=== PATIENT | male | born 1940 | race Caucasian/White ===

== ENCOUNTER → 2017-06-11 | Day surgery (SDC) | payer MEDICARE ==
[~2017-06-11] MED LIST: ASPIRIN81 MG; AUGMENTIN 875-1 EACH PO; CEFTRIAXONE SOD 1 GM VIAL ONE; CIPRO500 MG PO; DEXAMETHASONE SOD PHOS INJ 4 MG/ML VIAL ONE; EPHEDRINE SULFATE INJ 50 MG/10 ML SYR ONE; FENTANYL CITRATE/PF 100MCG/2 ML INJ ONE; IOPAMIDOL 610MG/1ML 300 MG/ML VIAL IV ONE; LIDOCAINE HCL 2% LOCAL INJ 5 ML SDV VIAL INJ ONE; METHYLPREDNISOL40 MG PO; MIDAZOLAM HCL 2 MG/2 ML VIAL ONE; ONDANSETRON HCL INJ 2 MG/ML VIAL ONE; ONDANSETRON ODT8 MG; PROPOFOL IV EMULSION 10 MG/ML 20 ML VIAL ONE; SEVOFLURANE INHAL SOLN 250 ML PEN BTL ONE; TAMSULOSIN HCL 0.4 MG CAP PO NR; TAMSULOSIN HCL0.4 MG; TYLENOL WITH C1 EACH PO
[2017-06-11 08:55] LABS: BASOPHILS # (AUTO) 0.1 (0.0-0.1); BASOPHILS % 0.6 % (0.0-1.0); EOSINOPHILS # (AUTO) 0.5 (0.0-0.4); EOSINOPHILS % 5.8 % (0.0-6.0); LYMPHOCYTES # (AUTO) 1.8 (1.0-3.2); LYMPHOCYTES % 21.8 % (18.0-39.1); MEAN CORPUSCULAR HEMOGLOBIN 30.2 pg (28-32); MEAN CORPUSCULAR HGB CONC 33.3 g/dL (31-35); MEAN CORPUSCULAR VOLUME 90.7 fL (81-99); MONOCYTES # (AUTO) 0.7 (0.2-0.8); MONOCYTES % 9.2 % (4.4-11.3); NEUTROPHILS % 62.4 % (38.7-80.0); PLATELET COUNT 342 x10e3/uL (140-360); RED BLOOD COUNT 3.97 x10e6/uL (4.3-5.7); RED CELL DISTRIBUTION WIDTH 14.3 % (11.7-14.4)
--- NOTE | 2017-06-11 09:30 | Diagnostic Imaging Report ---
PROCEDURE: Frontal and lateral views of the chest. COMPARISON: None. INDICATIONS: PREOPERATIVE CHEST XRAY FOR KIDNEY STONE SURGERY FINDINGS: Lines/tubes: None. Lungs: The lungs are well inflated and clear. There is no evidence of pneumonia or pulmonary edema. Biapical scarring. Pleura: There is no pleural effusion or pneumothorax. Heart and mediastinum: The heart and the mediastinum are normal. Atherosclerotic calcifications. Bones: No acute bony abnormality. Degenerative changes of the thoracic spine. IMPRESSION: No acute radiographic abnormality. Dictated by: Ignacio Perales M.D. on 06/11/2017 at 9:30 Electronically approved by: Ignacio Perales M.D. on 06/11/2017 at 9:30
--- NOTE | 2017-06-11 11:08 | Operative Report ---
DATE OF PROCEDURE: June 11, 2017 PREOPERATIVE DIAGNOSIS: Right distal ureteral stone. POSTOPERATIVE DIAGNOSES 1. Right distal ureteral stone. 2. Multiple bladder stones. OPERATIVE PROCEDURES PERFORMED 1. Cystoscopy. 2. Right retrograde pyelogram. 3. Right ureteroscopy with stone extraction. 4. Placement of right ureteral stent. ANESTHESIA: General anesthesia. ESTIMATED BLOOD LOSS: Minimal. INDICATIONS: Mr. Shiv Buck is a 77-year-old gentleman who recently presented with right flank pain. Was found to have a 6 mm right distal ureteral stone with moderate hydro. He now presents for definitive surgical management after failure of a trial of passage. PROCEDURE IN DETAIL: The patient was brought into the operating room and placed in the supine position. After administration of general anesthesia, was placed in the dorsal lithotomy position, and prepped and draped in the usual sterile fashion. Cystourethroscopy was performed using a 21-Gu[place] cystoscope. The anterior and posterior urethra were noted to be normal. The prostate revealed trilobar hyperplasia with moderate elevation of the median bar. The bladder was entered with mild difficulty. Upon entrance in the bladder, the ureteral orifices were in their normal anatomical position. There was grade 2-3 trabeculations noted with cellule formation and a few seen. There were 2 small calculi, each approximately 2-3 mm in diameter seen in the bladder. These were grasped with basket and removed in their entirety. The remainder of the bladder mucosa was otherwise unremarkable. A right retrograde pyelogram was performed using a 5-[place] open-ended catheter. This revealed a stone approximately 6-7 mm in diameter in the right distal ureter again with moderate hydronephrosis behind it, and significant ureteral dilation. A 0.038 wire was placed up into the right renal pelvis under fluoroscopic guidance. The ureteral orifice was dilated with a balloon dilator. Rigid ureteroscopy was then performed. The stone was in its previously described location. It was grasped with a basket and removed in its entirety. Repeat ureteroscopy up to the proximal ureter revealed no other calculi. The ureteroscope was then removed in its entirety. A 6-Gu[place] stent was placed. One coil within the renal pelvis and the subsequent coil was in the bladder. The string was allowed to exit the urethral meatus. The bladder was then drained in its entirety. The cystoscope and the sheath were removed. The patient was returned to the supine position, and anesthesia was reversed. He was transferred to a bed and taken to the postanesthesia care unit in good condition. Of note, the needle and instrument count were correct at the conclusion of the case. Job#: [id number]
--- NOTE | 2017-06-22 07:32 | Diagnostic Imaging Report ---
PROCEDURE:RETROGRADE PYELOGRAM INDICATION:Retrograde pyelogram COMPARISON:None. TECHNIQUE:Fluoroscopy was provided for the referring clinicians intraoperative use. Fluoroscopy time: 37 seconds. Cumulative air kerma: 5.56 mGy FINDINGS: There is retrograde selection opacification of the right ureter. Ureterogram demonstrates distal ureteral stricture with multiple small filling defects (likely air bubbles). Ureteroplasty was performed of the distal ureteral stricture, with subsequent placement of a double-J ureteral stent. Double-J ureteral stent loops are formed at the upper pole and urinary bladder. CONCLUSION: Right distal ureteroplasty with double-J stent placement. Dictated by: Cory Harris M.D. on 06/22/2017 at 7:33 Electronically approved by: Cory Harris M.D. on 06/22/2017 at 7:33
== END | disposition home or self-care (01) ==
LOC: OR 06:22
PROVIDERS: ATTEND Urology
DX: N13.2 Hydronephrosis with renal and ureteral calculous obstruction (principal); N21.0 Calculus in bladder; N32.89 Other specified disorders of bladder; H91.90 Unspecified hearing loss, unspecified ear; R00.1 Bradycardia, unspecified; F17.210 Nicotine dependence, cigarettes, uncomplicated; Z79.82 Long term (current) use of aspirin
CPT/HCPCS: 36415; 52332; 52352; 71046; 74420; 85025; 88300; 93005; C2617; J0696; J1100; J2001; J2250; J2405; Q9967

== ENCOUNTER → 2017-06-18 | Day surgery (SDC) | payer MEDICARE ==
[~2017-06-18] MED LIST changes: -CEFTRIAXONE SOD 1 GM VIAL ONE; -DEXAMETHASONE SOD PHOS INJ 4 MG/ML VIAL ONE; -EPHEDRINE SULFATE INJ 50 MG/10 ML SYR ONE; -IOPAMIDOL 610MG/1ML 300 MG/ML VIAL IV ONE; -LIDOCAINE HCL 2% LOCAL INJ 5 ML SDV VIAL INJ ONE; +LIDOCAINE JELLY 2% 10ML URO-JET ONE; -MIDAZOLAM HCL 2 MG/2 ML VIAL ONE; -ONDANSETRON HCL INJ 2 MG/ML VIAL ONE; -PROPOFOL IV EMULSION 10 MG/ML 20 ML VIAL ONE; -SEVOFLURANE INHAL SOLN 250 ML PEN BTL ONE; -TAMSULOSIN HCL 0.4 MG CAP PO NR
--- OUTSIDE RECORDS SUMMARY | 2017-06-18 09:07 | XMS REPORT ---
[facility] Unknown Phone Unavailable Care Team Providers Care Bellows Tester Name Role Phone LUZMA BANDA Unavailable Unavailable Problems This patient has no known problems. Allergies, Adverse Reactions, Alerts This patient has no known allergies or adverse reactions. Medications This patient has no known medications. Results Test Description Test Time Test Comments Text Results Atomic Results Result Comments CHEST 2 VIEWS [place] [address] Patient Name: NELSON RAMSEY MR #: [id number] : 1940 Age/Sex: 77/M Req #: [id number] Adm Physician: Ordered by: DIANE DOUGLASS MD Report #: [id number] Location: OR Room/Bed: Procedure: [id number] DX/CHEST 2 VIEWS Exam Date: 06/11/17 Exam Time: 0855 REPORT STATUS: Signed PROCEDURE: Frontal and lateral views of the chest. COMPARISON: None. INDICATIONS: PREOPERATIVE CHEST XRAY FOR KIDNEY STONE SURGERY FINDINGS: Lines/tubes: None. Lungs: The lungs are well inflated and clear. There is no evidence of pneumonia or pulmonary edema. Biapical scarring. Pleura: There is no pleural effusion or pneumothorax. Heart and mediastinum: The heart and the mediastinum are normal. Atherosclerotic calcifications. Bones: No acute bony abnormality. Degenerative changes of the thoracic spine. IMPRESSION: No acute radiographic abnormality. Dictated by: Allison Pierre M.D. on 06/11/2017 at 9:30 Electronically approved by: Allison Pierre M.D. on 06/11/2017 at 9:30 Dictated By: ALLISON PIERRE MD 9 Transcribed By: RANDY on 06/11/17929 COPY TO: DIANE DOUGLASS MD
--- NOTE | 2017-06-18 14:35 | Operative Report ---
DATE OF PROCEDURE: June 18, 2017 PREOPERATIVE DIAGNOSIS: Retained ureteral stent. POSTOPERATIVE DIAGNOSIS: Retained ureteral stent. OPERATIVE PROCEDURE PERFORMED: Cystoscopy with removal of retained ureteral stent. ANESTHESIA: MAC. ESTIMATED BLOOD LOSS: Minimal. INDICATIONS: Mr. Shiv Buck is a 77-year-old gentleman who recently underwent ureteroscopy with stone extraction. He was noted to have a retained stent after the procedure. He now presents for its removal. PROCEDURE IN DETAIL: The patient was brought into the operating room and kept in the supine position. After administration of general anesthesia, he was prepped in the usual fashion. Cystourethroscopy was performed with IV sedation and periurethral instillation of lidocaine jelly. The string from the stent was seen in the distal urethra, and this was grasped with a grasper and removed in its entirety. The stent was noted to follow. The patient had immediate relief of his stent discomfort. He was transferred to a bed and taken to the postanesthesia care unit in good condition. Of note, the needle and instrument counts were correct at the conclusion of the case. Job#: [id number]
== END | disposition home or self-care (01) ==
LOC: OR 09:05
PROVIDERS: ATTEND Urology
DX: Z46.6 Encounter for fitting and adjustment of urinary device (principal); N20.1 Calculus of ureter; F17.290 Nicotine dependence, other tobacco product, uncomplicated; Z79.82 Long term (current) use of aspirin